=== PATIENT | male | born 1955 | race Caucasian/White ===

== ENCOUNTER 2020-04-22 09:32 | Outpatient (CLI) | payer MEDICARE, OTHER, SELFPAY ==
--- NOTE | ~2020-04-22 | CT_ITS ---
EXAMINATION: CT IAC/mastoids BI wo con DATE: 04/22/2020 09:53 INDICATION: Cholesteatoma of left ear. TECHNIQUE: Computed tomography (CT) of the temporal bones was performed without intravenous contrast. Automated exposure control and iterative reconstruction technique were employed. The dose-length pro duct was 274.89 mGy-cm. COMPARISON: Head CT 03/14/2014 FINDINGS: RIGHT TEMPORAL BONE: The internal auditory canal, cochlea, vestibule, semicircular canals, vestibular aqueduct, carotid ca nal, jugular bulb, and facial nerve course are normal. There is material in the tympanic cavity at th e anterior aspect of the ossicles and in Prussak space. There are no erosions of bone. Scutum and tym panic cavity are normal. The mastoid air cells are hypoplastic. The external auditory canal is normal . LEFT TEMPORAL BONE: The internal auditory canal, cochlea, vestibule, semicircular canals, vestibular aqueduct, carotid ca nal, jugular bulb, and ossicles are normal. There is complete opacification of left tympanic cavity i ncluding Prussak space. There is complete opacification of the left mastoid air cells. There is dehis cence of tegmen tympani and tegmen mastoideum. There is blunting of the scutum. The external auditory canal is normal. IMPRESSION: 1. Complete opacification of the left tympanic cavity and mastoid air cells with blunting of the scut um, consistent with cholesteatoma. Reviewed, dictated and finalized at location A. IMPRESSION: 1. Complete opacification of the left tympanic cavity and mastoid air cells wit h blunting of the scutum, consistent with cholesteatoma.
== END 2020-04-22 09:33 | disposition home or self-care (01) ==
PROVIDERS: PCP Family Medicine; Visit Provider Otolaryngology
DX: H71.92 Unspecified cholesteatoma, left ear (principal)
CPT/HCPCS: 70480

== ENCOUNTER 2020-04-27 03:58 | Outpatient (CLI) | payer MEDICARE, OTHER, SELFPAY ==
[2020-04-27 19:05] LABS: SARS-CoV-2 RNA PCR Negative
== END 2020-04-27 03:59 | disposition home or self-care (01) ==
LOC: ANHCOVIDDT 03:58
PROVIDERS: PCP Family Medicine; Visit Provider Internal Medicine Gastroenterology
DX: Z01.812 Encounter for preprocedural laboratory examination (principal); Z20.828 Contact with and (suspected) exposure to other viral communicable diseases
CPT/HCPCS: 87635; C9803; U0003

== ENCOUNTER 2020-04-29 02:09 | Day surgery (SDC) | payer MEDICARE, OTHER, SELFPAY ==
[2020-04-29 12:04] VITALS: BP 131/84; PULSE 78; RESP 16; TEMP 36.2; O2SAT 96; BMI 30.4
[2020-04-29] MEDS: LACTATED RINGERS 1,000 ML 150 ML IV CONT (12:13)
--- NOTE | 2020-04-29 13:45 | PM.HPGS ---
History of Present Illness History of Present Illness Consent: Risks, benefits, and alternatives have been discussed and questions answered. Patient agrees to proceed with procedure. Chief complaint: Chronic Diarrhea/ Benign Neoplasm Of Colon Narrative: Rommel Early is a 65 year old male with change of bowel habits last several weeks Review of Systems Constitutional: Constitutional: Denies headache(s) and Denies weakness Eyes: Eyes: Denies blurry vision ENT: Reports Normal hearing present, Denies headache(s) and Denies neck pain Cardiovascular: Cardiovascular: Denies chest pain and Denies dyspnea Respiratory: Respiratory: Denies dyspnea Gastrointestinal: Gastrointestinal: Reports no additional gastrointestinal complaints Genitourinary: Genitourinary: Denies dysuria Musculoskeletal: Musculoskeletal: Denies neck pain Integumentary/Breasts: Skin/Breast: Denies dry skin Neurologic: Reports Normal hearing present, Denies headache(s) and Denies weakness Psychiatric: Psychiatric: Denies anxiety Endocrine: Endocrine: Denies change in body appearance Hematologic/Lymphatic: Hematologic/Lymphatic: Denies easy bleeding Allergic/Immunologic: Allergic/Immunologic: Denies urticaria PMFSH Past Medical History Medical History (Updated 04/29/20 @ 13:46 by Sebas Luevano MD) Adenomatous colon polyp Allergic rhinitis Bowel habit changes BPH (benign prostatic hyperplasia) Chronic back pain GERD (gastroesophageal reflux disease) Herpes genitalis History of recurrent ear infection Insomnia Mixed hyperlipidemia EDISON (obstructive sleep apnea) Rectal polyp Ruptured intervertebral disc Sciatica of right side Surgical History Surgical History H/O inguinal hernia repair History of cervical discectomy Family History Family History Mother Family history of Alzheimer's disease Family history of coronary artery disease Sibling Family history of Alzheimer's disease Family history of coronary artery disease Family history of malignant neoplasm of breast in first degree relative Father Malignant neoplasm of prostate Family history of lung cancer Social History Social History Smoking packs per day: 1.5 Smoking cigarettes per day: 30.0 Years smoked: 15 Smoking pack-years: 22.50 Smoking status: Former smoker Tobacco type: cigarettes Second hand tobacco smoke exposure: No Smoking end date: 07/08/84 Alcohol intake: current Drinks per week: 7 Substance use: never Substance use type: does not use Living arrangements: with family Gender identity (if verbalized by the patient): Male Spiritual care concerns: No Meds Home Medications and Allergies Home Medications Medication Instructions Recorded Confirmed Type aspirin 81 mg PO DAILY 05/19/19 04/29/20 History pravastatin 20 mg DAILY 06/20/19 04/29/20 History fluticasone propionate 50 2 spray NASAL DAILY 08/11/19 04/29/20 History mcg/actuation nasal spray,suspension omeprazole 20 mg capsule,delayed 20 mg PO QAM #90 cap 12/07/19 04/29/20 Rx release montelukast 10 mg tablet 10 mg PO DAILY #90 tablet 01/12/20 04/29/20 Rx trazodone 50 mg PO HS PRN 04/21/20 04/29/20 History Allergies Allergy/AdvReac Type Severity Reaction Status Date / Time No Known Allergies Allergy Verified 04/29/20 12:01 Vital Signs Vital Signs - 24 hr 04/29/20 12:04 Temperature 97.1 F L Pulse Rate 78 Respiratory Rate 16 Blood Pressure 131/84 Pulse Oximetry 96 Exam Const: General: comfortable and no acute distress HENMT: General nose exam: Normal nares present Eyes: General: appearance normal, both eyes and all related structures Neck: Neck: no JVD Resp: Auscultation: clear to auscultation bilaterally Cardio: Rate: regular rate Rhythm: regular rhythm GI: Ins
[2020-04-29 13:49] VITALS: BP 94/62; PULSE 73; RESP 20; O2SAT 95
[2020-04-29 13:59] VITALS: BP 108/72; PULSE 71; RESP 15; O2SAT 97
[2020-04-29 14:09] VITALS: BP 120/74; PULSE 61; RESP 23; O2SAT 99
== END 2020-04-29 14:18 | disposition home or self-care (01) ==
PROVIDERS: PCP Family Medicine; Visit Provider Internal Medicine Gastroenterology
PROC: 0DJD8ZZ Inspection of Lower Intestinal Tract, Via Natural or Artificial Opening Endoscopic (ICD-10-PCS; CPT 45378; principal; 2020-04-29 13:15)
DX: K52.9 Noninfective gastroenteritis and colitis, unspecified (principal); R19.4 Change in bowel habit; D12.8 Benign neoplasm of rectum; K21.9 Gastro-esophageal reflux disease without esophagitis; E78.2 Mixed hyperlipidemia; J30.9 Allergic rhinitis, unspecified; N40.0 Benign prostatic hyperplasia without lower urinary tract symptoms; M54.31 Sciatica, right side; M54.9 Dorsalgia, unspecified; G89.29 Other chronic pain; G47.33 Obstructive sleep apnea (adult) (pediatric); G47.00 Insomnia, unspecified; K64.8 Other hemorrhoids
CPT/HCPCS: 45380; 88305; J2704; J7120

== ENCOUNTER 2020-10-01 11:16 | Emergency (ER) | payer MEDICARE, OTHER, SELFPAY ==
[2020-10-01] VITALS (15 sets, daily range): BP systolic 112–136; BP diastolic 69–78; PULSE 58–77; RESP 12–20; TEMP 36.9; O2SAT 96–100
--- NOTE | ~2020-10-01 | XR_ITS ---
EXAMINATION: XR chest 2V DATE: 10/01/2020 12:00 INDICATION: Chest pain TECHNIQUE: PA and lateral views of the chest are obtained. COMPARISON: 11/20/2016 FINDINGS: The lungs are free of acute opacities. There is no pleural effusion or pneumothorax. The ca rdiomediastinal silhouette is normal. There is moderate thoracic spondylosis. IMPRESSION: 1. No acute cardiopulmonary abnormality. Reviewed, dictated and finalized at location A.
--- NOTE | 2020-10-01 11:22 | ECG_ITS ---
Measurements Intervals [place] Rate: 66 P: 36 TN: 171 QRS: 27 QRSD: 94 T: 31 QT: 375 QTc: 396 Interpretive Statements SINUS RHYTHM DELAYED PRECORDIAL R/S TRANSITION BASELINE WANDER- AVF BORDERLINE ECG Electronically Signed On 10-01-2020 15:15:53 CDT by Robin Mendez D.O.
--- NOTE | 2020-10-01 11:23 | ED.CHESTPAIN ---
HPI - Chest Pain General Chief Complaint: Chest Pain Stated Complaint: cp Time Seen by Provider: 10/01/20 11:23 History of Present Illness HPI narrative: Chest pain radiating into the neck and jaw for about 15-20 minutes. Resolved shortly after arrival. No previous episodes. H/o hypercholersterolemia. Reports active lifestyle and recent intentional 30 pound weight loss. No SOB, nausea, cough, fever. Related Data Home Medications Medication Instructions Recorded Confirmed aspirin 81 mg PO DAILY 05/19/19 08/17/20 trazodone 50 mg PO HS PRN 04/21/20 08/17/20 Allergies Allergy/AdvReac Type Severity Reaction Status Date / Time No Known Allergies Allergy Verified 08/17/20 10:01 Review of Systems Review of Systems: All systems reviewed & are unremarkable except as noted in HPI and below Constitutional: Constitutional: Reports no additional constitutional complaints Eyes: Eyes: Reports no additional eye complaints ENT: Reports system reviewed and no additional complaints, except as documented Cardiovascular: Cardiovascular: Reports as per HPI Respiratory: Respiratory: Denies dyspnea Genitourinary: Genitourinary: Reports no additional male genitourinary complaints Neurologic: Comments: light headedness [facility] Past Medical History Medical History Adenomatous colon polyp Allergic rhinitis Bowel habit changes BPH (benign prostatic hyperplasia) Chronic back pain GERD (gastroesophageal reflux disease) Herpes genitalis History of recurrent ear infection Insomnia Mixed hyperlipidemia EDISON (obstructive sleep apnea) Rectal polyp Ruptured intervertebral disc Sciatica of right side Surgical History Surgical History H/O inguinal hernia repair History of cervical discectomy Family History Family History Mother Family history of Alzheimer's disease Family history of coronary artery disease Sibling Family history of Alzheimer's disease Family history of coronary artery disease Family history of malignant neoplasm of breast in first degree relative Father Malignant neoplasm of prostate Family history of lung cancer Social History Social History Smoking packs per day: 1.5 Smoking cigarettes per day: 30.0 Years smoked: 15 Smoking pack-years: 22.50 Smoking status: Former smoker Tobacco type: cigarettes Second hand tobacco smoke exposure: No Smoking end date: 07/08/84 Alcohol intake: current Drinks per week: 7 Substance use: never Substance use type: does not use Gender identity (if verbalized by the patient): Male Spiritual care concerns: No Exam Const: General: healthy appearing, no acute distress and alert Orientation/consciousness: patient oriented x3 HENMT: Head: normal to inspection Neck: Neck: normal visual inspection and no lymphadenopathy Chest: Chest palpation & inspection: no tenderness Resp: Effort & Inspection: normal respiratory effort Auscultation: clear to auscultation bilaterally, no rales, no rhonchi and no wheezes Cardio: Jugular venous distension: no JVD Rate: regular rate Rhythm: regular rhythm Heart sounds: no murmurs GI: Inspection: non-distended GI Palp: Yes Soft to palpation and No Tenderness to palpation present (GI) Skin: General skin exam: normal color Neuro: General: patient oriented x3 and moves all extremities Speech: normal speech Extrem: General: no edema Psych: Appearance: well kempt Affect: normal affect Course Vital Signs Vital signs: Vital Signs Pulse Rate 68 10/01/20 11:21 Respiratory Rate 20 10/01/20 11:21 Pulse Oximetry 98 10/01/20 11:21 Temperature 36.9 C 10/01/20 11:33 Pulse Rate 60 10/01/20 13:16 Respiratory Rate 18 10/01/20 13:16 Blood Pressure 112/70 0
[2020-10-01 11:36] LABS: Basophils Absolute Auto 0.1 K/mm3 (0.0-0.1); Basophils Percent Auto 0.6 % (0.2-1.2); Eosinophils Absolute Auto 0.3 K/mm3 (0-0.3); Eosinophils Percent Auto 3.1 % (0-4.4); Immature Granulocyte Absolute 0.02 K/mm3 (0.00-0.031); Immature Granulocyte Percent A 0.2 % (0-0.5); Lymphocytes Percent Auto 13.9 % (18.3-44.2); Mean Corpuscular HGB Conc 34.1 g/dl (32-36); Mean Corpuscular Hemoglobin 31.4 pg (26-34); Mean Corpuscular Volume 91.9 fl (80-100); Mean Platelet Volume 10.1 fl (7.4-10.4); Monocytes Absolute Auto 0.7 K/mm3 (0.1-0.6); Monocytes Percent Auto 8.4 % (2.6-8.5); Neutrophils Absolute Auto 6.4 K/mm3 (1.3-6.7); Neutrophils Percent Auto 73.8 % (45.5-73.1); Platelet Count Result 211 k/mm3 (150-375); Red Blood Count 4.46 M/mm3 (4.6-6.20); Red Cell Distribution Width 12.5 % (11.5-14.5); White Blood Count 8.6 K/mm3 (4.5-10.0)
[2020-10-01 11:46] LABS: Anion Gap 6 mmol/L (8-16); Blood Urea Nitrogen 15 mg/dL (9-20); Calcium 8.9 mg/dL (8.4-10.2); Carbon Dioxide 27 mmol/L (22-30); Chloride 106 mmol/L (98-107); Estimated CRCL calculation 69 ml/min; Estimated Glomerular Filt Rate > 60; Glucose 93 mg/dL (75-110); Partial Thromboplastin Time 21.2 SECONDS (22.3-36.8); Potassium 4.5 mmol/L (3.4-5.0); Prothrombin Time 13.5 Seconds (11.1-14.7); Sodium 139 mmol/L (137-145)
[2020-10-01 11:58] LABS: Troponin I < 0.012 ng/mL (0.000-0.034)
[2020-10-01 15:38] LABS: Troponin I < 0.012 ng/mL (0.000-0.034)
== END 2020-10-01 16:03 | disposition home or self-care (01) ==
PROVIDERS: Emergency Provider Emergency Medicine; PCP Family Medicine
DX: R07.9 Chest pain, unspecified (principal); N40.0 Benign prostatic hyperplasia without lower urinary tract symptoms; K21.9 Gastro-esophageal reflux disease without esophagitis; E78.2 Mixed hyperlipidemia; G47.33 Obstructive sleep apnea (adult) (pediatric); Z86.010 Personal history of colon polyps; Z87.891 Personal history of nicotine dependence; R94.31 Abnormal electrocardiogram [ECG] [EKG]
CPT/HCPCS: 36415; 71046; 80048; 84484; 85025; 85610; 85730; 93005; 99284

== ENCOUNTER 2021-08-28 09:01 | Outpatient (CLI) | payer MEDICARE, SELFPAY ==
--- NOTE | ~2021-08-28 | US_ITS ---
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 COMPARISON: None. FINDINGS: The proximal aorta measures 2.9 cm greatest sagittal dimension. The mid aorta measures 2.4 cm greates t sagittal dimension. The distal aorta measures 1.8 cm greatest sagittal dimension. The right common internal iliac artery measures 1.2 cm. The left common iliac artery measures 1 cm . IMPRESSION: 1. Normal caliber aorta without aneurysm. Reviewed, dictated and finalized at location B. SKATING COACH
== END 2021-08-28 09:02 | disposition home or self-care (01) ==
LOC: ANHIMG 09:07
PROVIDERS: PCP Family Medicine; Visit Provider Family Medicine
DX: Z13.6 Encounter for screening for cardiovascular disorders (principal)
CPT/HCPCS: 76706

== ENCOUNTER 2023-11-21 08:09 | Outpatient (CLI) | payer MEDICARE, SELFPAY ==
--- NOTE | ~2023-11-21 | XR_ITS ---
Thoracic spine: Clinical Indication: Back pain AP and lateral views were performed. No fracture is seen. There is normal alignment of the vertebrae. There is moderate degenerative disc change throughout the thoracic spine. Paravertebral soft tissues appear normal. Impression: Mild to moderate degenerative disc change throughout the thoracic spine. Reviewed, dictated and finalized at [facility]. Impression: Mild to moderate degenerative disc change throughout the thoracic spine.
--- NOTE | ~2023-11-21 | XR_ITS ---
Lumbosacral Spine: AP and lateral views Clinical History: Pain Findings: The normal lordotic curve is maintained. 3 mm retrolisthesis of L4 over L5 noted. There is moderate advanced facet arthropathy from L4 through S1. No fracture seen. The sacroiliac joints are normally outlined. Impression: 3 mm retrolisthesis of L4 over L5. Moderate to advanced degenerative spondylosis at the lower lumbar spine, as detailed above. Reviewed, dictated and finalized at location M. Impression: 3 mm retrolisthesis of L4 over L5. Moderate to advanced degenerative spondylosis at the lower lumbar spine, as det natalia above.
== END 2023-11-21 08:10 ==
PROVIDERS: PCP Physician Assistant Medical; Visit Provider Physician Assistant Medical
DX: M47.894 Other spondylosis, thoracic region (principal); M47.896 Other spondylosis, lumbar region
CPT/HCPCS: 72070; 72100

== ENCOUNTER 2023-11-22 09:51 | Outpatient (CLI) | payer MEDICARE, SELFPAY ==
--- NOTE | ~2023-11-22 | US_ITS ---
EXAMINATION: US scrotum doppler DATE: 11/22/2023 10:14 INDICATION: Left testicular pain. TECHNIQUE: Grayscale and Doppler ultrasound images of the testes were obtained. COMPARISON: None. FINDINGS: The right testis measures 4.5 x 3.7 x 2.2 cm. The left testis measures 5.4 x 2.6 x 2.0 cm. There is normal vascular flow to both testes. The right epididymis is normal with normal vascular nacho w. The left epididymis is normal with normal vascular flow. There is no varicocele or hydrocele. IMPRESSION: 1. Normal testes. Reviewed, dictated and finalized at location E. IMPRESSION: 1. Normal testes.
== END 2023-11-22 09:52 ==
LOC: GOSHIMG 09:52
PROVIDERS: PCP Physician Assistant Medical; Referring Provider Urology; Visit Provider Urology
DX: N50.819 Testicular pain, unspecified (principal)
CPT/HCPCS: 76870; 93976

== ENCOUNTER 2025-06-29 00:38 | Day surgery (SDC) | payer MEDICARE, SELFPAY ==
[2025-06-09 11:24] VITALS: BMI 25.9
--- OUTSIDE RECORDS SUMMARY | 2025-06-29 00:40 | XMS_ITS | Clinical Summary ---
Author Organization [facility] Address [address] [place] [id number] Care Team Providers Care Charcoal Burner Beehive Kiln Name Role Phone Unavailable Primary Care Provider Unavailabl e Social History Tobacco Use Types Packs/Day Years Used Date Smoking Tobacco: Never Assessed Sex and Gender Information Value Date Recorded Sex Assigned at Not on file Legal Sex Male 7:33 PM CDT Gender Identity Not on file Sexual Orientation Not on file Plan of Treatment Health Maintenance Due Date Last Done Comments Colorectal Cancer Screening Colonoscopy (10 Years) 1955 Hepatitis C 1973 DTaP, Tdap and Td Vaccines ( 1 - Tdap) 1974 Pneumococcal Vaccine: 50+ Ye ars (1 of 1 - PCV) 2005 Zoster Vaccines (1 of 2) 2005 Annual Medicare Wellness Visit 01/20/2020 COVID-19 Vaccine (1 - 2024-2 6 season) 2025 Influenza Adult (#1) 2025 RSV Immunization or 60+ Years (1 - 1-dose 75+ series) 2030 Hepatitis A Vaccines Aged Out No long er eligible based on patient's age to complete this topic Meningococcal B Vaccine Aged Out No l onger eligible based on patient's age to complete this topic Meningococcal Vaccine Aged Out No glo mitchel eligible based on patient's age to complete this topic RSV Immunizations Under 20 Months Aged Out No longer eligible based on patient's age to complete this topic Insurance MEDICARE
--- OUTSIDE RECORDS SUMMARY | 2025-06-29 00:40 | XMS_ITS | Encounter Summary ---
Author Organization [facility] Address [address] [place] [address] Phone Care Team Providers Care Chain Saw Operator Name Role Phone Benjamin Johnson MD Primary Care Provider Benjamin Johnson MD Unavailable [phone] Riccardo Rodriguez MD Unavailable [phone] Encounter Details Date Type Department Care Team (Latest Contact Info) Description 09/21/2024 Orders Only [facility] Lynn Simon RN Social History Tobacco Use Types Packs/Day Years Used Date Smoking Tobacco: Former Sex and Gender Information Value Date Recorded Sex Assigned at Not on file 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 Gender Identity Not on file Sexual Orientation Not on file documented as of this encounter Plan of Treatment Not on file documented as of this encounter Procedures Procedure Name Priority Date/Time Associated Diagnosis Comments SCAN - LABS 09/21/2024 documented in this encounter Results * SCAN - LABS (09/21/2024) us Lynn Simon RN Final Result documented in this encounter Visit Diagnoses Not on filedocumented in this encounter Additional Health Concerns Infection Onset Date Last Indicated Resolved Time COVID: Suspected 04/10/2025 04/10/2025 04/10/2025 5:27 PM CDT documented as of this encounter Care Teams Chain Saw Operator Relationship Specialty Start Date End Date Benjamin Johnson MD [address] [facility] [address] [place] [address] PCP - General 11/23/20 Benjamin Johnson MD [address] [address] Family Medicine 11/23/20 Riccardo Rodriguez MD [address] [address] Referring Physician Otolaryngology 05/30/20 documented as of this encounter
--- OUTSIDE RECORDS SUMMARY | 2025-06-29 00:40 | XMS_ITS | Clinical Summary ---
Author Organization [facility] Address [address] [place] [address] Care Team Providers Care Meat Grinder Name Role Phone Benjamin Johnson MD Primary Care Provider [phone] Source Comments [facility],non-owned Affiliates and Associated Physician Practices is amultiple site organization consisting of ambulatory clinics and hospital sitesin [place], [place], [place] and [place]. This disclosure is being madepursuant to the Care Everywhere program and may not contain all information available regarding this patient. Last updated 18.[facility] Immunizations Immunization Administration Dates Next Due INFLUENZA VACCINE, HIGH-DOSE , QUADR. 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 Gender Identity Not on file Sexual Orientation Not on file Plan of Treatment Health Maintenance Due Date Last Done Comments COLOGUARD (AGES 45-75) - COL ON CA SCREENING 1955 COLON MONITORING 1955 COLONOSCOPY - COLON CA SCREENING 1955 CT COLONOGRAPHY - COLON CA SCREENING 1955 Colorectal Cancer Screening 1955 FIT - COLON CA SCREENING 1955 FLEX SIG - COLON CA SCREENING 1955 LIPID TESTING 1955 HEPATITIS C SCREENING 01/14/1973 DTAP/TDAP/TD VACCINES (1 - Tdap) 1974 PNEUMOCOCCAL VACCINE 50+ (1 of 1 - PCV) 2005 ZOSTER VACCINE (1 of 2) 2005 DEPRESSION SCREENING 07/08/2024 COVID-19 VACCINE (1 - 2024-2 6 season) 2025 INFLUENZA VACCINE (#1) 2025 04/11/2020 Respiratory Syncytial Virus (RSV) Vaccine Pt: or over 60 yrs (1 - 1-dose 75+ series) 2030 HEPATITIS B VACCINE Aged Out No longe r eligible based on patient's age to complete this topic HIB VACCINE Aged Out No longer eligi ble based on patient's age to complete this topic HPV VACCINE Aged Out No longer eligi ble based on patient's age to complete this topic MENINGOCOCCAL (Group B) VACC INE SHARED DECISION-MAKING Aged Out No longer eligibl e based on patient's age to complete this topic MENINGOCOCCAL GROUPS A/C/Y/W VACCINE Aged Out No longer eligible b ased on patient's age to complete this topic Insurance [place] [address] [facility] Care Teams Meat Grinder Relationship Specialty Start Date End Date Benjamin Johnson MD [address] [place] [address] PCP - General 06/21/15
[2025-06-29 11:58] VITALS: BP 126/78; PULSE 70; RESP 18; TEMP 36.3; O2SAT 100
[2025-06-29] MEDS: LACTATED RINGERS 1,000 ML 150 ML IV CONT (12:10)
--- NOTE | 2025-06-29 12:46 | P.PNAN_ITS ---
Anes - Initial Pre Proc Eval Procedure: Operation Date: 06/29/25 13:00 Proposed Procedures p Screening Colonoscopy - Sebas Luevano MD Date/Time: 06/29/25 12:46 Surgeon: Sebas Luevano MD Pre Op Diagnosis: Personal history of colon polyps, unspecified Patient Data Age: 70 Gender: M Height: 1.7 m Weight: 73.6 kg Last Vital Signs Temp 97.4 F L 06/29/25 11:58 Pulse 70 06/29/25 11:58 Resp 18 06/29/25 11:58 BP 126/78 06/29/25 11:58 Pulse Ox 100 06/29/25 11:58 O2 Del Method Room Air 06/29/25 11:58 Allergies Allergy/AdvReac Type Severity Reaction Status Date / Time No Known Allergies Allergy Verified 06/29/25 11:57 Home Medications ?Medication ?Instructions ?Recorded ?Confirmed ?Type aspirin 81 mg chewable tablet 81 mg PO DAILY 05/19/19 06/29/25 History trazodone 50 mg tablet 100 mg PO HS 04/21/20 History fluticasone propionate 50 2 spray intranasal DAILY #15 .8 mL 03/05/22 06/29/25 Rx mcg/actuation nasal spray,suspension omeprazole 40 mg capsule,delayed See Rx Instructions . Route 01/06/25 06/29/25 Rx release .COMPLEX #90 caps levocetirizine 5 mg tablet 5 mg PO DAILY 06/09/2506/08 History multivitamin 1 tablet PO DAILY 06/09/25 1 08/30/24 History pravastatin 40 mg tablet 40 mg PO DAILY #90 tabs 06/0706/29/25 Rx Patient hx anesthesia problems: none Family hx anesthesia problems: none Results Review: All pre-operative results and documents have been reviewed as part of the pre- operative evaluation. [facility] Past Medical History Medical History Meningoencephalocele s/p repair Bowel habit changes Adenomatous colon polyp Insomnia Allergic rhinitis GERD (gastroesophageal reflux disease) Ruptured intervertebral disc Chronic back pain BPH (benign prostatic hyperplasia) Herpes genitalis Rectal polyp History of recurrent ear infection Mixed hyperlipidemia EDISON (obstructive sleep apnea) Sciatica of right side Surgical History Surgical History 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 History of cervical discectomy H/O inguinal hernia repair Family History Family History Mother Family history of Alzheimer's disease Family history of coronary artery disease Sibling Family history of Alzheimer's disease Family history of coronary artery disease Family history of malignant neoplasm of breast in first degree relative Father Malignant neoplasm of prostate Family history of lung cancer Social History Social History Social History: Smoking packs per day: 1.5 Smoking cigarettes per day: 30.0 Years smoked: 15 Smoking pack-years: 22.50 Smoking status: Never smoker Tobacco type: cigarettes Second hand tobacco smoke exposure: No Smoking end date: 07/08/84 Alcohol intake: current Drinks per week: 7 Alcohol use details: Glass of wine at dinner Substance use: never Substance use type: does not use Lack of Transportation: No Lack of Food: Never True Current Housing: I Have Housing Concerned About Future Housing: No Difficulty Paying Gas/Electric Bills: No Difficulty Paying for Meds: No Currently Unemployed: YES Education: Don't Know Difficulty w/ Childcare or Family Care: No Living arrangements: with family Occupation/Education: retired Gender identity (if verbalized by the patient): Male Sexual Orientation (if Verbalized by the Patient): Straight or Heterosexual Spiritual care concerns: No Anes - Eval Final PreProcedure Day of Procedure 06/29/25 12:46 Patient weight: overweight Lungs: normal air movement Airway: Mallampati scale class II Neurological: alert and oriented Last oral intake: >/= 8 hours ASA classification: II Emergent: no Anesthetic plan: proceed Anesthesia type and monitoring: general GIVS and standard monitoring Results Review: All pre-operative results and documents have been reviewed as part of the pre-operative evaluation. Hyperlipidemia. Informed Consent: The patient's anesthetic plan and its attendant risks and benefits were discussed with the patient/family/POA. Questions were solicited and answers provided to the satisfaction of the patient/family/POA.
--- NOTE | 2025-06-29 12:48 | PM.HPGS ---
History of Present Illness History of Present Illness Consent: Risks, benefits, and alternatives have been discussed and questions answered. Patient agrees to proceed with procedure. Chief complaint: Personal history of colon polyps, unspecified Narrative: Rommel Early is a 70 year old male with colon polyp in 2019 Review of Systems Review of Systems: All systems reviewed & are unremarkable except as noted in HPI and below PMFSH Past Medical History Medical History Meningoencephalocele s/p repair Bowel habit changes Adenomatous colon polyp Insomnia Allergic rhinitis GERD (gastroesophageal reflux disease) Ruptured intervertebral disc Chronic back pain BPH (benign prostatic hyperplasia) Herpes genitalis Rectal polyp History of recurrent ear infection Mixed hyperlipidemia EDISON (obstructive sleep apnea) Sciatica of right side Surgical History Surgical History 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 History of cervical discectomy H/O inguinal hernia repair Family History Family History Mother Family history of Alzheimer's disease Family history of coronary artery disease Sibling Family history of Alzheimer's disease Family history of coronary artery disease Family history of malignant neoplasm of breast in first degree relative Father Malignant neoplasm of prostate Family history of lung cancer Social History Social History Social History: Smoking packs per day: 1.5 Smoking cigarettes per day: 30.0 Years smoked: 15 Smoking pack-years: 22.50 Smoking status: Never smoker Tobacco type: cigarettes Second hand tobacco smoke exposure: No Smoking end date: 07/08/84 Alcohol intake: current Drinks per week: 7 Alcohol use details: Glass of wine at dinner Substance use: never Substance use type: does not use Lack of Transportation: No Lack of Food: Never True Current Housing: I Have Housing Concerned About Future Housing: No Difficulty Paying Gas/Electric Bills: No Difficulty Paying for Meds: No Currently Unemployed: YES Education: Don't Know Difficulty w/ Childcare or Family Care: No Living arrangements: with family Occupation/Education: retired Gender identity (if verbalized by the patient): Male Sexual Orientation (if Verbalized by the Patient): Straight or Heterosexual Spiritual care concerns: No Meds Home Medications and Allergies Home Medications ?Medication ?Instructions ?Recorded ?Confirmed ?Type aspirin 81 mg chewable tablet 81 mg PO DAILY 05/19/19 06/29/25 History trazodone 50 mg tablet 100 mg PO HS 04/21/20 06/29/25 History fluticasone propionate 50 2 spray intranasal DAILY #15.8 mL 03/05/22 06/29/25 Rx mcg/actuation nasal spray,suspension omeprazole 40 mg capsule,delayed See Rx Instructions .Route 01/06/25 06/29/25 Rx release .COMPLEX #90 caps levocetirizine 5 mg tablet 5 mg PO DAILY 06/09/25 06/29/25 History multivitamin 1 tablet PO DAILY 06/09/25 06/29/25 History pravastatin 40 mg tablet 40 mg PO DAILY #90 tabs 06/16/25 06/29/25 Rx Allergies Allergy/AdvReac Type Severity Reaction Status Date / Time No Known Allergies Allergy Verified 06/29/25 11:57 Vital Signs Vital Signs - 24 hr 06/29/25 11:58 Temperature 97.4 F L Pulse Rate 70 Respiratory Rate 18 Blood Pressure 126/78 Pulse Oximetry 100 Oxygen Delivery Room Air Exam Const: General: comfortable and no acute distress HENMT: Face/Nose/Sinus: Normal nares present Eyes: General: appearance normal, both eyes and all related structures Neck: Neck: no JVD Resp: Auscultation: clear to auscultation bilaterally Cardio: Rate: regular rate Rhythm: regular rhythm GI: Inspection: non-distended GI Palp: Yes Soft to palpation Skin: General skin exam: normal color Assessment and Plan Assessment and plan (1) Adenomatous colon polyp: Code(s): D12.6 - Benign neoplasm of colon, unspecified Status: Acute Assessment and Plan: colonoscopy
[2025-06-29 13:07] VITALS: BP 105/63; PULSE 61; RESP 16; O2SAT 99
[2025-06-29 13:17] VITALS: BP 109/64; PULSE 69; RESP 14; O2SAT 100
[2025-06-29 13:27] VITALS: BP 114/72; PULSE 61; RESP 18; O2SAT 100
== END 2025-06-29 13:34 | disposition home or self-care (01) ==
PROVIDERS: PCP Family Medicine; Referring Provider Internal Medicine Gastroenterology; Visit Provider Internal Medicine Gastroenterology
PROC: 0DJD8ZZ Inspection of Lower Intestinal Tract, Via Natural or Artificial Opening Endoscopic (ICD-10-PCS; CPT 45378; principal; 2025-06-29 13:00)
DX: Z12.11 Encounter for screening for malignant neoplasm of colon (principal); K64.8 Other hemorrhoids; Z86.0100 Personal history of colon polyps, unspecified
CPT/HCPCS: G0105; J2003; J2704; J7120